=== PATIENT | female | born 1930 | race Caucasian/White ===

== ENCOUNTER 2021-07-23 07:20 | Day surgery (SDC) | payer MEDICARE, BC ==
[2021-07-22 14:09] LABS: BASOPHILS # (AUTO) 0.1 X10'3 (0-0.2); BASOPHILS % (AUTO) 0.8 % (0-1); EOSINOPHILS # (AUTO) 0.1 X10'3 (0-0.9); HEMATOCRIT 36.7 % (35.0-45.0); HEMOGLOBIN 12.3 g/dl (12.0-16.0); LYMPHOCYTES # (AUTO) 1.1 X10'3 (1.1-4.8); LYMPHOCYTES % (AUTO) 15.8 % (21-51); MEAN CORPUSCULAR HEMOGLOBIN 30.6 PG (27.0-31.0); MEAN CORPUSCULAR HGB CONC 33.6 g/dL (33.0-36.5); MEAN CORPUSCULAR VOLUME 91.1 FL (78-98); MONOCYTES # (AUTO) 0.6 X10'3 (0-0.9); MONOCYTES % (AUTO) 8.6 % (2-12); NEUTROPHILS # (AUTO) 5.2 X10'3 (1.8-7.7); NEUTROPHILS % (AUTO) 72.8 % (42-75); PLATELET COUNT 141 X10'3 (140-440); RED BLOOD COUNT 4.03 X10'6 (4.20-5.60); RED CELL DISTRIBUTION WIDTH 14.2 % (11.5-14.5); WHITE BLOOD COUNT 7.1 X10'3 (4.5-11.0)
[2021-07-22 14:20] LABS: PARTIAL THROMBOPLASTIN TIME 27 SECONDS (22-32)
[2021-07-22 14:24] LABS: ALBUMIN 3.6 G/DL (3.4-5.0); ANION GAP 7 (8-16); BLOOD UREA NITROGEN 22 MG/DL (7-18); CALCIUM 8.6 MG/DL (8.5-10.1); CHLORIDE 105 MMOL/L (99-107); CREATININE 0.88 MG/DL (0.40-0.90); GLUCOSE 100 MG/DL (70-104); POTASSIUM 4.3 MMOL/L (3.5-5.1); SODIUM 143 MMOL/L (135-145); TOTAL CARBON DIOXIDE 31.3 MMOL/L (24-32); eGFR 61 ML/MIN
[2021-07-23] VITALS (12 sets, daily range): BP systolic 113–133; BP diastolic 33–60
[~2021-07-23] VITALS: Ht 157.5 cm; Wt 50.2 kg
[2021-07-23] MEDS ORDERED: normal saline 1000ml 1,000 ML IV SCH ×2 (08:00→11:40)
[2021-07-23] MEDS ORDERED: cefazolin/dext.iso 2gm/100ml 100 ML IV ONE (08:05)
[2021-07-23] MEDS ORDERED: IBUP-1984 PO (08:34)
[2021-07-23] MEDS ORDERED: FURO-150 PO (08:34)
[2021-07-23] MEDS ORDERED: MONT10TA21 PO (08:34)
[2021-07-23] MEDS ORDERED: MELA5TAB12 PO (08:34)
[2021-07-23] MEDS ORDERED: POTA10TA10 PO (08:34)
[2021-07-23] MEDS ORDERED: ACET325T57 PO (08:34)
[2021-07-23] MEDS ORDERED: TAMO10TA14 PO (08:34)
[2021-07-23] MEDS ORDERED: ALPR-624 PO (08:34)
[2021-07-23] MEDS ORDERED: DIPH-423 PO (08:34)
[2021-07-23] MEDS ORDERED: FERR325T28 PO (08:34)
[2021-07-23] MEDS ORDERED: CIPR250T4 PO (08:34)
[2021-07-23] MEDS ORDERED: LEVO25TA2 PO (08:34)
[2021-07-23] MEDS ORDERED: Imodium PO (08:34)
[2021-07-23] MEDS ORDERED: SIMV-42 PO (08:34)
[2021-07-23] MEDS ORDERED: SERT25TA PO (08:34)
[2021-07-23] MEDS ORDERED: ASPI-1265 PO (08:34)
[2021-07-23] MEDS ORDERED: NAPR220T67 PO (08:34)
[2021-07-23] MEDS ORDERED: midazolam 1 mg/ML 2ml injection ONE (09:32)
[2021-07-23] MEDS ORDERED: fentaNYL/PF 50MCG/1 ML 2ML syringe ONE (09:32)
[2021-07-23] MEDS ORDERED: ceFAZolin 1000mg inj ONE (09:32)
[2021-07-23] MEDS ORDERED: LIDOcaine 1% W/epiNEPHrine 1:100,000 20ml vial ONE (09:33)
[2021-07-23] MEDS ORDERED: HYDROcodone/acetaminophen 10/325mg tab PO PRN (11:45)
[2021-07-23] MEDS ORDERED: HYDROcodone/acetaminophen 5mg/325mg tablet PO PRN (11:45)
[2021-07-23] MEDS ORDERED: vancomycin/NS 1 GM ADD-VANTAGE 250 ML X 1 DOSE IV ONE (12:00)
== END 2021-07-23 16:25 | disposition home or self-care (01) ==
LOC: SSTAY O 07:20
PROVIDERS: ATTEND Internal Medicine Cardiovascular Disease
DX: Z45.010 Encounter for checking and testing of cardiac pacemaker pulse generator [battery] (principal); I48.91 Unspecified atrial fibrillation; I25.10 Atherosclerotic heart disease of native coronary artery without angina pectoris; I11.0 Hypertensive heart disease with heart failure; I50.9 Heart failure, unspecified; I27.20 Pulmonary hypertension, unspecified; F03.90 Unspecified dementia, unspecified severity, without behavioral disturbance, psychotic disturbance, mood disturbance, and anxiety; Z79.899 Other long term (current) drug therapy
CPT/HCPCS: 33228; 36415; 80048; 85025; 85610; 85730; 93005; 99152; 99153; C1785; J0690; J2250; J3010; J3370; J7030; A4620